=== PATIENT | male | born 1975 | race Caucasian/White ===

== ENCOUNTER → 2017-03-30 | Outpatient (CLI) | payer OTHER | LOC: BMCIMAGING 15:34 | PROVIDERS: ATTEND Internal Medicine | DX: R31.0 Gross hematuria (principal) ==

== ENCOUNTER → 2017-04-01 | Outpatient (CLI) | payer OTHER ==
[~2017-04-01] MED LIST: IOPAMIDOL (ISOVUE-300) 100 ML BTL ONE
== END ==
LOC: CIMAGING 09:17
PROVIDERS: ATTEND Internal Medicine
DX: N20.0 Calculus of kidney (principal)
CPT/HCPCS: 74178-PO; Q9967